=== PATIENT | female | born 1940 | race Caucasian/White ===

== ENCOUNTER → 2016-10-20 | Outpatient (CLI) | payer MEDICARE, BC ==
--- NOTE | 2016-10-20 14:06 | REP ---
LUMBAR SPINE SERIES: Five views. HISTORY: Pain. FINDINGS: Lumbar vertebral body heights are preserved. Alignment is normal. There is a fairly advanced degenerative disc narrowing with vacuum phenomenon, sclerosis and osteophyte formation at L4-5 and L5-S1. Some degenerative disc disease is seen and L3-4 as well although this is mild. No spondylolisthesis is seen. There is osteoarthritic facet hypertrophy mild in degree bilaterally at L4-5 and L5-S1. There is no evidence of spondylolysis. Sacrum and SI joints are intact. Psoas margins are symmetric. IMPRESSION: Degenerative disc and osteoarthritic facet changes as noted above. Signed by Jonel Weiner MD 10/20/2016 02:58 P
--- NOTE | 2016-10-20 14:15 | REP ---
LEFT HIP: TWO VIEWS. HISTORY: Pain in the left hip. FINDINGS: AP and frog-leg views of the left hip demonstrate tendon insertion site spurring on the greater trochanter. There is some diffuse osteopenia. Femoral head is smooth and rounded. No fracture or erosive changes seen. Joint spaces preserved. IMPRESSION: Tendon insertion site spurring on the greater trochanter. No acute bony abnormality. Signed by Jonel Weiner MD 10/20/2016 02:59 P
== END ==
LOC: M ADAMS 12:58
PROVIDERS: ATTEND Physician Assistant Medical
DX: M25.752 Osteophyte, left hip (principal)